=== PATIENT | female | born 1945 | race Caucasian/White ===

== ENCOUNTER 2022-05-30 09:00 | Outpatient (RCR) | payer MEDICARE, SELFPAY ==
--- NOTE | 2022-02-28 11:50 | HMH.PTOPEV ---
PT Outpatient Evaluation Rehab PT Outpatient Evaluation Start: 02/28/22 10:37 Freq: Status: Active Protocol: Document 02/28/22 10:37 [email or web address] (Rec: 02/28/22 11:50 [email or web address] [id number]) Electronically Signed By Castro Estrada, PT 02/28/22 10:37 Outpatient Therapy Subjective History Subjective History Pt. is a 76 year old female who presents to [facility] in [place] for the initial evaluation this date( 02/28/22) w/ c's/o chronic and intermittent ataxic/unsteady gait and imbalance of insidious onset for quite awhile now. Pt. reports recently switching to a new PCP(Dr. Austin) where she was referred to Outpatient Physical Therapy to address imbalance and gait disturbances. Pt. reports having to ambulate w/ a FWW when she goes for long distances, or leaving the house, secondary to LBP! and imbalance. However, pt. reports ambulating in her house w/o an AD d/t shorter distances. Pt. reports living in a 1-story home w/ her daughter. Pt. reports noticing a LOB when her COM gets outside her ZAC especially to the right, but also posteriorly. Pt. reports living a sedentary lifestyle. Pt. reports having cataract surgery next wk. Current medications include Sertraline , Celebrex, Metoprolol, Trelegy, and Omeprazole. PMH includes S/P knee meniscectomy , Hypertension, S/P lumbar fusion, hx. cataract sx., hearing loss(R>L), Asthma, stomach ulcer. Pt. denies history of cancer(self), denies diabetes, denies pacemaker, possible latex allergy. Chief Complaint Pain,Weakness,Decr
== END 2022-06-08 14:33 | disposition home or self-care (01) ==
LOC: PT.CARL 09:00
PROVIDERS: Visit Provider Internal Medicine Adolescent Medicine
DX: R26.9 Unspecified abnormalities of gait and mobility (principal)
CPT/HCPCS: 97110; 97112; 97163; 97164